=== PATIENT | female | born 1975 ===

== ENCOUNTER 2021-05-24 17:35 | Emergency (ER) | payer OTHER, SELFPAY ==
--- NOTE | ~2021-05-24 | XR_ITS ---
EXAMINATION: X-RAY LUMBAR SPINE X-RAY SACRUM/COCCYX X-RAY PELVIS CLINICAL INFORMATION: Status post fall, pain. COMPARISON: None. TECHNIQUE: 3 views of the lumbar spine 1 view of the pelvis 3 views of the sacrum/coccyx. FINDINGS: Lumbar spine: No evidence of acute fractures or malalignment. There is mild disc space narrowing and facet arthropathy at L4-L5 and L5-S1 with some degree of neural foraminal encroachment which is suboptimally assessed in the absence of oblique views. Pelvis: Partially visualized total left sided hip arthroplasty with an acetabular screw. 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 There is no evidence of acute fractures or malalignment. There are moderate degenerative changes in the right hip with joint space narrowing and subcortical sclerosis. There are moderate degenerative changes as well in the pubic symphysis. Chronic deformity of the right ischial tuberosity. Sacrum/coccyx: Questionable anterior subluxation in the upper sacrum of what appears to be S2 on S3. There is also some degree of diastases in between S4/S5 and L5/coccyx. XR/XR pelvis min 3V IMPRESSION: Lumbar spine: No acute fractures or malalignment. Mild degenerative spondylosis. Pelvis: Chronic deformity of the left sacroiliac joint with traversing screws. Partially visualized total left-sided hip arthroplasty. No definite acute fractures. Sacrum/coccyx: Questionable subluxation in the upper sacrum with widening of some joints in the lower sacrum. Recommend correlation for pain/tenderness and if indicated further evaluation with a CT of the pelvis.
--- NOTE | ~2021-05-24 | XR_ITS ---
EXAMINATION: X-RAY LUMBAR SPINE X-RAY SACRUM/COCCYX X-RAY PELVIS CLINICAL INFORMATION: Status post fall, pain. COMPARISON: None. TECHNIQUE: 3 views of the lumbar spine 1 view of the pelvis 3 views of the sacrum/coccyx. FINDINGS: Lumbar spine: No evidence of acute fractures or malalignment. There is mild disc space narrowing and facet arthropathy at L4-L5 and L5-S1 with some degree of neural foraminal encroachment which is suboptimally assessed in the absence of oblique views. Pelvis: Partially visualized total left sided hip arthroplasty with an acetabular screw. 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 There is no evidence of acute fractures or malalignment. There are moderate degenerative changes in the right hip with joint space narrowing and subcortical sclerosis. There are moderate degenerative changes as well in the pubic symphysis. Chronic deformity of the right ischial tuberosity. Sacrum/coccyx: Questionable anterior subluxation in the upper sacrum of what appears to be S2 on S3. There is also some degree of diastases in between S4/S5 and L5/coccyx. XR/XR sacrum coccyx min 2V IMPRESSION: Lumbar spine: No acute fractures or malalignment. Mild degenerative spondylosis. Pelvis: Chronic deformity of the left sacroiliac joint with traversing screws. Partially visualized total left-sided hip arthroplasty. No definite acute fractures. Sacrum/coccyx: Questionable subluxation in the upper sacrum with widening of some joints in the lower sacrum. Recommend correlation for pain/tenderness and if indicated further evaluation with a CT of the pelvis.
--- NOTE | ~2021-05-24 | XR_ITS ---
EXAMINATION: XR SHOULDER, RIGHT CLINICAL INFORMATION: Fall while ice-skating. COMPARISON: None TECHNIQUE: Four views of the right shoulder. FINDINGS: The bones and soft tissues are normal. No fracture. Glenohumeral and acromioclavicular alignment is anatomic with normal joint space. No abnormal soft tissue calcifications. XR/XR shoulder RT min 2V IMPRESSION: Normal right shoulder.
--- NOTE | ~2021-05-24 | XR_ITS ---
EXAMINATION: X-RAY LUMBAR SPINE X-RAY SACRUM/COCCYX X-RAY PELVIS CLINICAL INFORMATION: Status post fall, pain. COMPARISON: None. TECHNIQUE: 3 views of the lumbar spine 1 view of the pelvis 3 views of the sacrum/coccyx. FINDINGS: Lumbar spine: No evidence of acute fractures or malalignment. There is mild disc space narrowing and facet arthropathy at L4-L5 and L5-S1 with some degree of neural foraminal encroachment which is suboptimally assessed in the absence of oblique views. Pelvis: Partially visualized total left sided hip arthroplasty with an acetabular screw. 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 There is no evidence of acute fractures or malalignment. There are moderate degenerative changes in the right hip with joint space narrowing and subcortical sclerosis. There are moderate degenerative changes as well in the pubic symphysis. Chronic deformity of the right ischial tuberosity. Sacrum/coccyx: Questionable anterior subluxation in the upper sacrum of what appears to be S2 on S3. There is also some degree of diastases in between S4/S5 and L5/coccyx. XR/XR lumbar spine 2-3V IMPRESSION: Lumbar spine: No acute fractures or malalignment. Mild degenerative spondylosis. Pelvis: Chronic deformity of the left sacroiliac joint with traversing screws. Partially visualized total left-sided hip arthroplasty. No definite acute fractures. Sacrum/coccyx: Questionable subluxation in the upper sacrum with widening of some joints in the lower sacrum. Recommend correlation for pain/tenderness and if indicated further evaluation with a CT of the pelvis.
[2021-05-24 18:02] VITALS: BP 110/50; PULSE 73; RESP 18; O2SAT 100; BMI 29.0
--- NOTE | 2021-05-24 19:20 | ED_ITS ---
HPI - Back Pain/Injury General Chief Complaint: Back Pain/Injury Stated Complaint: fall Time Seen by Provider: 05/24/21 19:06 Source: patient Mode of arrival: ambulatory Limitations: no limitations History of Present Illness HPI Narrative: Patient bradford skmartín slipped and fell landed on her buttocks complaining of pain on the left side of her buttocks, also complaining of pain in the right shoulder no head injury no loss of consciousness patient ambulatory otherwise Related Data Previous Rx's Medication Instructions Recorded doxycycline monohydrate 100 mg 100 mg PO BID 10 Days #20 cap 10/11/20 capsule Allergies Allergy/AdvReac Type Severity Reaction Status Date / Time penicillin V Allergy Unknown Rash Verified 05/24/21 19:07 Review of Systems Review of Systems: Yes all other systems are reviewed and are negative FOR[facility]LY [facility] Past Medical History Medical History No pertinent past medical history Surgical History Hip joint replacement status Social History Social History Advance Directives: No Advance Directives Information Provided: No Patient : No Physical Exam Vital Signs: Vital Signs: Last Vital Signs Pulse 73 05/24/21 18:02 Resp 18 05/24/21 18:02 BP 110/50 L 05/24/21 18:02 Pulse Ox 100 05/24/21 18:02 Body Mass Index 29.0 Const: General: no acute distress and well developed Orientation/consciousness: patient oriented x3 HENMT: Head: Yes normocephalic Ears: hearing grossly normal bilaterally Eyes: General: appearance normal, both eyes and all related structures Neck: Neck: Yes normal visual inspection, Yes full ROM and No tender Chest: Chest palpation & inspection: normal inspection of the chest Resp: Effort & Inspection: normal respiratory effort Auscultation: clear to auscultation bilaterally Cardio: Rate: regular rate Rhythm: regular rhythm Heart sounds: S1 normal heart sound present and S2 normal heart sound present : General: Yes no CVA tenderness Back/Spine/Pelvis: Back: no CVA tenderness Cervical Spine: cervical ROM normal Thoracic/Lumbar Spine: No thoraco-lumbar spasm, No thoracic spinal tenderness and No lumbar spinal tenderness Back/spine/pelvis image: 1. No midline tenderness tenderness in the right gluteal area Neuro: General: patient oriented x3, gait normal and no focal motor deficits Discharge Plan Discharge Clinical Impression: Contusion of lower back Qualifiers: Encounter type: initial encounter Qualified Code(s): S30.0XXA - Contusion of lower back and pelvis, initial encounter Patient Disposition: Home, Self-Care Instructions: Acute Low Back Pain (ED) Additional Instructions: Take Tylenol/ibuprofen for pain Apply ice Follow with PCP if pain does not get better Prescriptions: No Action doxycycline monohydrate 100 mg capsule 100 mg PO BID 10 Days Qty: 20 RF: 0 Interventions: ED Discharge Assessment Last Done: 05/24/21 19:50 Discharge Date/Time: 05/24/21 20:21
== END 2021-05-24 20:21 | disposition home or self-care (01) ==
PROVIDERS: Emergency Provider Internal Medicine
DX: S30.0XXA Contusion of lower back and pelvis, initial encounter (principal); W00.0XXA Fall on same level due to ice and snow, initial encounter; Y93.21 Activity, ice skating; Y92.9 Unspecified place or not applicable; Y99.9 Unspecified external cause status
CPT/HCPCS: 72100; 72190; 72220; 73030; 99283

== ENCOUNTER 2021-08-22 07:33 | Outpatient (REF) | payer OTHER, SELFPAY ==
[2021-08-22 11:01] LABS: MANUAL DIFF FLAG NO
[2021-08-22 11:05] LABS: Basophils Percent Auto 0.9 % (0-2); Eosinophils Absolute Auto 0.2 X10*3/uL (0.0-0.4); Eosinophils Percent Auto 4.7 % (0-4); Hematocrit 31.3 % (37.0-47.0); Hemoglobin 9.1 g/dl (12.0-16.0); Lymphocytes Absolute Auto 1.3 X10*3/uL (1.2-4.9); Lymphocytes Percent Auto 38.3 % (20-40); Mean Corpuscular HGB Conc 29.1 g/dl (31.0-35.0); Mean Corpuscular Hemoglobin 23.5 pg (27.0-33.0); Mean Corpuscular Volume 80.7 fL (80.0-98.0); Mean Platelet Volume 9.9 fL (9.4-12.3); Monocytes Absolute Auto 0.4 X10*3/uL (0.1-1.2); Monocytes Percent Auto 12.5 % (2-11); Neutrophils Absolute Auto 1.5 x10*3/uL (2.0-8.3); Neutrophils Percent Auto 43.6 % (45-73); Platelet Count 254 X10*3/uL (160-400); Red Blood Count 3.88 X10*6/uL (4.20-5.50); Red Cell Distribution Width 17.6 % (11.0-16.0); White Blood Count 3.4 X10*3/uL (4.8-10.8)
[2021-08-22 11:24] LABS: Alanine Aminotransferase < 6 U/L (0-31); Alkaline Phosphatase 44 U/L (39-117); Anion Gap 9 (12-20); Aspartate Amino Transferase 14 U/L (5-31); Bilirubin Total 0.4 mg/dL (0.0-1.0); Blood Urea Nitrogen 15 mg/dL (9-16); Calcium 8.9 mg/dL (8.4-10.2); Carbon Dioxide 27 mmol/L (22-29); Chloride 109 mmol/L (96-108); Cholesterol 159 mg/dL; Estimated Glomerular Filt Rate > 60; Glucose Fasting 87 mg/dL (60-99); HDL Cholesterol 47 mg/dL; LDL Cholesterol Calculated 102 mg/dl; Potassium 4.4 mmol/L (3.3-5.1); Sodium 141 mmol/L (135-145); Total Protein 6.4 g/dL (6.5-8.0); Triglycerides 53 mg/dL
[2021-08-22 11:41] LABS: TSH reflex Free T4 1.37 uIU/mL (0.32-4.0)
== END 2021-08-22 07:34 | disposition home or self-care (01) ==
LOC: HO.WFDLDS 07:33
PROVIDERS: Visit Provider Nurse Practitioner Family
DX: I10 Essential (primary) hypertension (principal); E78.00 Pure hypercholesterolemia, unspecified; Z76.89 Persons encountering health services in other specified circumstances
CPT/HCPCS: 36415; 80053; 80061; 84443; 85025

== ENCOUNTER 2021-09-18 14:19 | Outpatient (REF) | payer OTHER, SELFPAY ==
--- NOTE | ~2021-09-18 | MM_ITS ---
EXAMINATION: MM SCREENING DIGITAL BREAST TOMOSYNTHESIS, BILATERAL CLINICAL INFORMATION: Screening. Asymptomatic. Age 46. No prior breast imaging. No known family history breast cancer. The lifetime risk of breast cancer based on the Tyrer-Cuzick Model is 8%. COMPARISON: None (current study represents initial baseline exam). TECHNIQUE: Digital breast tomosynthesis is performed in both the craniocaudal and mediolateral oblique views along with computer-aided detection (CAD). Synthesized 2D images are generated from the tomosynthesis. Additional right MLO view is provided. FINDINGS: There are scattered areas of fibroglandular density (ACR BI-RADS breast composition Category b). There are no significant masses, abnormal calcifications, or other abnormalities. The axilla and skin contours are unremarkable. MM/MM tomosynthesis screening BI IMPRESSION: No mammographic evidence of malignancy. ASSESSMENT: BI-RADS 1: Negative RECOMMENDATION: Routine annual mammography screening. This patient's information was entered into a reminder system with a target due date for their next mammogram.
== END 2021-09-18 14:20 | disposition home or self-care (01) ==
LOC: HO.MAMMO 14:19
PROVIDERS: PCP Nurse Practitioner Family; Visit Provider Nurse Practitioner Family
DX: Z12.31 Encounter for screening mammogram for malignant neoplasm of breast (principal)
CPT/HCPCS: 77063; 77067

== ENCOUNTER 2021-10-15 08:14 | Outpatient (REF) | payer OTHER, SELFPAY ==
[2021-10-15 11:35] LABS: MANUAL DIFF FLAG NO
[2021-10-15 11:48] LABS: Basophils Percent Auto 0.5 % (0-2); Eosinophils Absolute Auto 0.1 X10*3/uL (0.0-0.4); Eosinophils Percent Auto 1.8 % (0-4); Hemoglobin 9.7 g/dl (12.0-16.0); Lymphocytes Absolute Auto 1.5 X10*3/uL (1.2-4.9); Lymphocytes Percent Auto 39.6 % (20-40); Mean Corpuscular HGB Conc 28.5 g/dl (31.0-35.0); Mean Corpuscular Volume 80.6 fL (80.0-98.0); Mean Platelet Volume 10.8 fL (9.4-12.3); Monocytes Absolute Auto 0.5 X10*3/uL (0.1-1.2); Monocytes Percent Auto 12.3 % (2-11); Neutrophils Absolute Auto 1.7 x10*3/uL (2.0-8.3); Neutrophils Percent Auto 45.8 % (45-73); Platelet Count 268 X10*3/uL (160-400); Red Blood Count 4.22 X10*6/uL (4.20-5.50); Red Cell Distribution Width 18.8 % (11.0-16.0); White Blood Count 3.8 X10*3/uL (4.8-10.8)
[2021-10-15 12:19] LABS: Iron 25 mcg/dL (30-160); Percent Iron Saturation 6 % (15-50); Total Iron Binding Capacity 452 mcg/dL (228-428); Unsaturated Iron Binding 427 ug/dL
== END 2021-10-15 08:15 | disposition home or self-care (01) ==
LOC: HO.WFDLDS 08:14
PROVIDERS: Visit Provider Nurse Practitioner Family
DX: I10 Essential (primary) hypertension (principal); D64.9 Anemia, unspecified
CPT/HCPCS: 36415; 83540; 85025

== ENCOUNTER 2021-10-31 12:21 | Day surgery (SDC) | payer OTHER, SELFPAY ==
--- NOTE | 2021-10-30 09:21 | P.CONAN_ITS ---
Documented by User: Shira Basilio NP 10/30/21 09:22 HPI - Anesthesia Eval Consult details Narrative: 46yo F for Colonoscopy PMFSH Active Problems Active Problems: All Active Problems (Updated 10/25/21 @ 12:18 by Kamala Osei, RN) Otitis media, right (Acute) Bilateral otitis media (Acute) Encounter to establish care (Acute ~08/20/21) COVID-19 virus infection (Acute ~07/2021) Difficulty sleeping (Acute) Anemia (Acute) Past Medical History Medical History (Updated 10/25/21 @ 12:18 by Kamala Osei, [email or web address]) Anemia No pertinent past medical history Personal history of COVID-19 Family History Family History (Updated 08/20/21 @ 13:59 by NAN Elizabeth) Mother Mental health disorder Father No problems noted. Family/Other Substance use disorder Surgical History Surgical History (Updated 08/20/21 @ 14:13 by KIMBERLEE Servin) Hip joint replacement status Social History Social History (Updated 08/20/21 @ 14:00 by NAN Elizabeth) Housing: House Alcohol intake: former Patient Tobacco Use Status: Never used Tobacco e-Cigarette/Vaping Use: Never Used Second Hand Smoke Exposure: No Advance Directives: No Advance Directives Information Provided: Yes service: No Current occupational status: employed Current occupational exposures/hazards: No Meds Allergies Allergy/AdvReac Type Severity Reaction Status Date / Time penicillin V Allergy Unknown Rash Verified 10/25/21 12:18 Exam Exam Date and Time: October 30, [id number] Pertinent Lab Results Pertinent Lab Results: Laboratory Tests 08/22/21 10/15/21 07:40 08:20 WBC 3.8 L Hgb 9.7 L Hct 34.0 L Plt Count 268 Sodium 141 Potassium 4.4 Chloride 109 H Carbon Dioxide 27 BUN 15 Creatinine 0.84 Assessment and Plan Assessment Anesthesia Assessment: Chart Reviewed Documented by User: Amos Burleson MD 10/31/21 12:29 [facility] Past Medical History Medical History (Updated 10/25/21 @ 12:18 by Kamala Osei RN) Anemia No pertinent past medical history Personal history of COVID-19 Family History Family History (Updated 08/20/21 @ 13:59 by NAN Elizabeth) Mother Mental health disorder Father No problems noted. Family/Other Substance use disorder Family history of problems with anesthesia: No Surgical History Surgical History (Updated 08/20/21 @ 14:13 by KIMBERLEE Servin) Hip joint replacement status History of Problems with Anesthesia: No Social History Social History (Updated 08/20/21 @ 14:00 by NAN Elizabeth) Housing: House Alcohol intake: former Patient Tobacco Use Status: Never used Tobacco e-Cigarette/Vaping Use: Never Used Second Hand Smoke Exposure: No Advance Directives: No Advance Directives Information Provided: Yes service: No Current occupational status: employed Current occupational exposures/hazards: No Meds Allergies Allergy/AdvReac Type Severity Reaction Status Date / Time penicillin V Allergy Unknown Rash Verified 10/25/21 12:18 Exam Airway Mallampati Class: II TM Dist: >3cm Neck ROM: Full Assessment and Plan Assessment Anesthesia Assessment: Anesthesia Plan Discussed Final Anesthetic Review Family History of Problems with Anesthesia: No History of Problems with Anesthesia: No NPO: Yes ASA Class: II Final Preanesthetic Review: No Changes in Pt Med Stat, Meds/Allgs Chart Reviewed, Consent Obtained/Reviewed and Anes Risks/Benef Reviewed Patient Risk: Low Procedure Risk: Low Anesthetic Plan Anesthetic Plan: MAC: Disposition: Standard PACU
--- NOTE | 2021-10-31 12:03 | MHC.SHP ---
Pre-Procedural Eval Section A Date of Service: 10/31/21 Section B Chief Complaint: screening Relevant Family History (Specify if Yes): No Relevant Social History: None Present Medications: see Short Stay Collaborative assessment Medical History: Significant History (otitis media, menorrhagia ) History of Previous Operations: Relevant previous surgery/procedure and date(s) (hip surgery) Allergies: Allergies Allergy/AdvReac Type Severity Reaction Status Date / Time penicillin V Allergy Unknown Rash Verified 10/25/21 12:18 Review of Systems Sugical H&P ROS: Negative: Constitution, Cardiovascular, Respiratory, Neurological, Psychiatric, Hem-Onc, Allergic/Immunologic, Gastrointestinal, Genitourinary, Musculoskeletal, Integumentary, Endocrine and Eyes/Ears/Nose/Throat Exam Surgical H&P Exam: Normal: HEENT, Normal: Heart, Normal: Lungs, Normal: Extremities, Normal: Abdomen, Normal: Skin and Normal: Neurological Plan Diagnosis/Plan: Unchanged I have reviewed the history and physical and performed a pertinent physical examination on my patient. No changes have occurred unless specified.
--- NOTE | 2021-10-31 12:37 | PM.OP ---
Brief Operative Note Date of Service: 10/31/21 Pre-op diagnosis: screening colonoscopy Post-op diagnosis: same Procedure: see op note Surgeon: Parmjit Melendez MD Anesthesia: MAC Was an Novelty Maker used for this Procedure?: No Estimated blood loss (mL): 0 Condition: stable Disposition: PACU
[2021-10-31 12:42] LABS: UPreg QC Valid YES; Urine Pregnancy NEGATIVE (NEGATIVE)
[2021-10-31 12:44] VITALS: BP 129/86; PULSE 96; RESP 18; TEMP 36.7; O2SAT 97; BMI 29.0
[2021-10-31] MEDS: Lactated Ringers 1,000 ML 100 ML IVCONT (12:50)
--- NOTE | 2021-10-31 13:42 | W.PM.OPN ---
Operative Note Operative Note Date of Service: 10/31/21 Narrative: Operative Information Procedure Description: Colonoscopy Indication: screening colonoscopy Anesthesia: MAC COLONOSCOPY Instrument: Olympus variable stiffness pediatric scope 190L Colonoscopy Monitoring: Vital signs and clinical assessment, continuous EKG monitoring, Pulse oximetry, Carbon Dioxide monitoring and blood pressure monitoring were done throughout the procedure. Colon withdrawal time was 21 minutes. Procedure: The patient was placed in the left lateral decubitis position and pre-procedure medications were administered. After a digital rectal examination of the ano-rectum, the video colonoscope was inserted into the rectum and advanced through the colon to the cecum/TI. The colonoscope was slowly withdrawn in a retrograde panoramic fashion and the colon mucosa was carefully examined including a retroflexed view of the rectum. Findings and interventions are described below. Procedure Difficulty: easy Findings: Terminal Ileum-normal Right sided retroflexion was normal Cecum:normal Ascending Colon: proximal part of colon there was a flat polyp 10 mm which was lifted with ORISE and then removed with cold snare. In mid ascending colon 10-11 mm sessile polyp noted, removed with cold snare, small residual piece removed with forceps but the other part removed by cold snare was not retrieved. Transverse Colon -normal Descending Colon: 12-14 mm flat polyp overlapping a fold was noted, lifted with ORISE and then removed enbloc with cold snare Sigmoid Colon: normal Rectum: Retroflexion with small internal hemorrhoids, grade I, 6-8 mm sessile polyp removed with forceps Anorectum - normal Colon preparation: Dilliner Bowel Preparation Scale Right colon; 2 Transverse colon: 2 Left colon; 2 (0 = Unprepared colon segment with mucosa not seen due to solid stool that cannot be cleared. 1 = Portion of mucosa of the colon segment seen, but other areas of the colon segment not well seen due to staining, residual stool and/or opaque liquid. 2 = Minor amount of residual staining, small fragments of stool and/or opaque liquid, but mucosa of colon segment seen well. 3 = Entire mucosa of colon segment seen well with no residual staining, small fragments of stool or opaque liquid) Impression and Post Procedure Diagnosis: polyps internal hemorrhoids Plan: High fiber diet leaflet Avoid straining at stool, epsom salts and sitz bath, anusol supps or cream Repeat Colonoscopy in 3 years due to polyps, also patient had taken iron tabs and black liquid in certain parts of colon obscured view or earlier if clinically indicated Above findings were reviewed with the patient and relevant handouts were provided if indicated.
[2021-10-31 13:48] VITALS: BP 106/65; PULSE 68; RESP 16; TEMP 36.7; O2SAT 98
[2021-10-31 14:06] VITALS: BP 104/65; PULSE 69; RESP 16; TEMP 36.8; O2SAT 98
== END 2021-10-31 14:39 | disposition home or self-care (01) ==
PROVIDERS: Nurse Practitioner; PCP Nurse Practitioner Family; Visit Provider Internal Medicine Gastroenterology
PROC: 0DJD8ZZ Inspection of Lower Intestinal Tract, Via Natural or Artificial Opening Endoscopic (ICD-10-PCS; CPT 45378; principal; 2021-10-31 13:20)
DX: Z12.11 Encounter for screening for malignant neoplasm of colon (principal); D12.2 Benign neoplasm of ascending colon; D12.4 Benign neoplasm of descending colon; K62.1 Rectal polyp; K57.30 Diverticulosis of large intestine without perforation or abscess without bleeding; K64.0 First degree hemorrhoids; D64.9 Anemia, unspecified; G47.9 Sleep disorder, unspecified; Z79.899 Other long term (current) drug therapy; Z88.0 Allergy status to penicillin; Z86.16 Personal history of COVID-19; Z96.641 Presence of right artificial hip joint
CPT/HCPCS: 45385; 45380; 45381; 81025; 88305

== ENCOUNTER 2021-11-20 08:58 | Outpatient (REF) | payer OTHER, SELFPAY ==
[2021-11-20 15:19] LABS: CT PCR NOT DETECTED (Not Detect.); NG PCR NOT DETECTED (Not Detect.)
[2021-11-21 11:12] LABS: BV Int Neg Control Negative (Negative); BV Int Pos Control Positive (Positive)
[2021-11-23 16:57] LABS: HPV mRNA E6/E7 rflx Not Detected (Not Detected)
== END 2021-11-20 08:59 | disposition home or self-care (01) ==
LOC: HO.LAB 08:58
PROVIDERS: PCP Nurse Practitioner Family; Visit Provider Advanced Practice Midwife
DX: Z01.419 Encounter for gynecological examination (general) (routine) without abnormal findings (principal); N92.0 Excessive and frequent menstruation with regular cycle; Z20.2 Contact with and (suspected) exposure to infections with a predominantly sexual mode of transmission
CPT/HCPCS: 87480; 87491; 87510; 87591; 87624; 87660; 88142

== ENCOUNTER 2021-12-12 14:32 | Outpatient (REF) | payer OTHER, SELFPAY ==
--- NOTE | ~2021-12-12 | US_ITS ---
EXAMINATION: US PELVIS CLINICAL INFORMATION: Excessive and frequent menstruation. COMPARISON: None. TECHNIQUE: Ultrasound of the pelvis is performed using both transabdominal and transvaginal transducers along with Doppler. Transvaginal imaging is performed due to inadequate visualization transabdominally. FINDINGS: The uterus is anteverted and measures 10.9 x 4 x 5.4 cm in dimension. There is a small cyst in the anterior lower uterine segment just anterior to the endometrium measuring 2 x 3 mm. No other focal uterine lesion is seen. Endometrial thickness is upper normal measuring 1.5 cm. There are nabothian cysts in the cervix. The ovaries are normal. The right ovary measures 2.9 x 1.6 x 1 cm. The left ovary measures 2.5 x 2 x 1.6 cm. There is no fluid in the pelvis. US/US pelvic and transvaginal IMPRESSION: Upper normal thickness endometrium measuring 1.5 cm.
== END 2021-12-12 14:33 | disposition home or self-care (01) ==
LOC: HO.US 14:32
PROVIDERS: Visit Provider Advanced Practice Midwife
DX: N92.0 Excessive and frequent menstruation with regular cycle (principal)
CPT/HCPCS: 76830; 76856

== ENCOUNTER 2022-01-06 13:36 | Outpatient (REF) | payer OTHER, SELFPAY | END 2022-01-06 13:37 | disposition home or self-care (01) | LOC: HO.LAB 13:36 | PROVIDERS: PCP Nurse Practitioner Family; Visit Provider Advanced Practice Midwife | DX: N93.9 Abnormal uterine and vaginal bleeding, unspecified (principal); Z32.02 Encounter for pregnancy test, result negative | CPT/HCPCS: 58100; 81025; 88305 ==

== ENCOUNTER → 2022-02-13 14:56 | Outpatient (BNVA) | payer OTHER, SELFPAY | PROVIDERS: PCP Nurse Practitioner Family; Visit Provider Advanced Practice Midwife | DX: Z30.430 Encounter for insertion of intrauterine contraceptive device (principal); Z32.02 Encounter for pregnancy test, result negative | CPT/HCPCS: 58300; 81025 ==

== ENCOUNTER → 2022-03-17 15:26 | Outpatient (BNVA) | payer OTHER, SELFPAY | PROVIDERS: PCP Nurse Practitioner Family; Visit Provider Obstetrics & Gynecology | DX: Z32.02 Encounter for pregnancy test, result negative (principal); Z30.431 Encounter for routine checking of intrauterine contraceptive device | CPT/HCPCS: 81025 ==

== ENCOUNTER 2022-09-18 07:27 | Outpatient (REF) | payer OTHER, SELFPAY ==
[2022-09-18 11:16] LABS: MANUAL DIFF FLAG NO
[2022-09-18 11:36] LABS: Basophils Percent Auto 0.7 % (0-2); Eosinophils Absolute Auto 0.1 X10*3/uL (0.0-0.4); Hematocrit 46.4 % (37.0-47.0); Hemoglobin 14.9 g/dl (12.0-16.0); Imm Gran Abs Auto 0.02 X10*3/uL (0.00-0.03); Imm Gran Pct Auto 0.3 % (0.0-0.4); Lymphocytes Absolute Auto 1.6 X10*3/uL (1.2-4.9); Lymphocytes Percent Auto 26.6 % (20-40); Mean Corpuscular HGB Conc 32.1 g/dl (31.0-35.0); Mean Corpuscular Hemoglobin 30.8 pg (27.0-33.0); Mean Corpuscular Volume 96.1 fL (80.0-98.0); Mean Platelet Volume 10.3 fL (9.4-12.3); Monocytes Absolute Auto 0.7 X10*3/uL (0.1-1.2); Monocytes Percent Auto 10.6 % (2-11); Neutrophils Absolute Auto 3.7 x10*3/uL (2.0-8.3); Neutrophils Percent Auto 59.8 % (45-73); Platelet Count 208 X10*3/uL (160-400); Red Blood Count 4.83 X10*6/uL (4.20-5.50); Red Cell Distribution Width 13.2 % (11.0-16.0); White Blood Count 6.1 X10*3/uL (4.8-10.8)
[2022-09-18 11:38] LABS: Appearance Urine Clear; Color Urine Yellow; Glucose Urine UA Negative (Negative); Leukocyte Esterase Urine Large (3+) (Negative); Nitrite Urine Positive (Negative); UMIC TRIGGER UACC YES; Urine Blood Trace (Negative); Urine Ketones Negative (Negative); Urine Protein Negative (Neg-Trace)
[2022-09-18 11:43] LABS: Bacteria Urine 4+ (None Seen); Hyaline Casts Urine 0-2 /LPF (0-2); RBC Urine 0-2 /HPF (0-2); Squamous Epithelial Cell Urine 0-2 /HPF (0-2); UACC Culture Trigger YES; WBC Urine >50 /HPF (0-5)
[2022-09-18 12:27] LABS: Alanine Aminotransferase < 6 U/L (0-31); Albumin Level 4.3 g/dL (3.5-5.0); Alkaline Phosphatase 49 U/L (39-117); Anion Gap 12 (12-20); Aspartate Amino Transferase 14 U/L (5-31); Bilirubin Total 0.6 mg/dL (0.0-1.0); Blood Urea Nitrogen 18 mg/dL (9-16); Calcium 8.9 mg/dL (8.4-10.2); Carbon Dioxide 27 mmol/L (22-29); Chloride 107 mmol/L (96-108); Cholesterol 179 mg/dL; Estimated Glomerular Filt Rate > 60; Glucose Fasting 79 mg/dL (60-99); HDL Cholesterol 49 mg/dL; LDL Cholesterol Calculated 119 mg/dl; Potassium 4.6 mmol/L (3.3-5.1); Sodium 141 mmol/L (135-145); Total Protein 6.6 g/dL (6.5-8.0); Triglycerides 58 mg/dL
[2022-09-18 12:38] LABS: Folate 12.4 ng/mL (> or = 4.0); TSH reflex Free T4 1.95 uIU/mL (0.32-4.0); Vitamin B12 405 pg/mL (200-900); Vitamin D 25-OH Total 24.6 ng/mL (>30)
== END 2022-09-18 07:28 | disposition home or self-care (01) ==
LOC: HO.WFDLDS 07:27
PROVIDERS: Visit Provider Nurse Practitioner Family
DX: Z00.00 Encounter for general adult medical examination without abnormal findings (principal); N39.0 Urinary tract infection, site not specified; E55.9 Vitamin D deficiency, unspecified; G47.00 Insomnia, unspecified; D64.9 Anemia, unspecified
CPT/HCPCS: 36415; 80053; 80061; 81001; 82306; 82607; 82746; 84443; 85025; 87086; 87088; 87186

== ENCOUNTER 2022-09-22 14:26 | Outpatient (REF) | payer OTHER, SELFPAY ==
--- NOTE | ~2022-09-22 | MM_ITS ---
EXAMINATION: MM SCREENING DIGITAL BREAST TOMOSYNTHESIS, BILATERAL CLINICAL INFORMATION: Screening. Asymptomatic. The lifetime risk of breast cancer based on the Tyrer-Cuzick Model is 8%. COMPARISON: Mammography: 09/18/2021 (baseline) TECHNIQUE: Digital breast tomosynthesis is performed in both the craniocaudal and mediolateral oblique views along with computer-aided detection (CAD). Synthesized 2D images are generated from the tomosynthesis. FINDINGS: There are scattered areas of fibroglandular density (ACR BI-RADS breast composition Category b). There are no significant masses, abnormal calcifications, or other abnormalities. Parenchymal pattern is similar to prior baseline exam. There is no architectural abnormality. The axilla are unremarkable. No significant changes. MM/MM tomosynthesis screening BI IMPRESSION: No mammographic evidence of malignancy. ASSESSMENT: BI-RADS 1: Negative RECOMMENDATION: Routine annual mammography screening. This patient's information was entered into a reminder system with a target due date for their next mammogram.
== END 2022-09-22 14:27 | disposition home or self-care (01) ==
LOC: HO.MAMMO 14:26
PROVIDERS: PCP Nurse Practitioner Family; Visit Provider Nurse Practitioner Family
DX: Z12.31 Encounter for screening mammogram for malignant neoplasm of breast (principal)
CPT/HCPCS: 77063; 77067

== ENCOUNTER → 2022-11-24 09:32 | Outpatient (BNVA) | payer OTHER, SELFPAY | PROVIDERS: PCP Nurse Practitioner Family; Visit Provider Advanced Practice Midwife ==

== ENCOUNTER 2023-08-26 13:51 | Outpatient (AMB) | payer OTHER, SELFPAY ==
--- NOTE | 2023-08-26 13:53 | A.OFFPC_ITS ---
Vital Signs 08/26/23 13:54 Height 5 ft 6 in Weight 185 lb 4 oz BMI 29.9 BP 110/72 Blood Pressure Location Lt brachial Position Sitting Pulse 91 Pulse Source Pulse Oximeter Pulse Oximetry (%) 96 Oxygen Delivery Method Room Air Intake Visit Reasons: physical Intake Note: Patient is here today for a physical. 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 Enforcement Inspector: Not Required per policy Accompanied by: Self / Same As Patient Allergies penicillin V Allergy (Unknown, Verified 08/28/23 11:00) Rash Medication List - Last Reconciled 08/28/23 by Jero Smith MD cholecalciferol (vitamin D3) 25 mcg PO DAILY trazodone 50 mg PO BEDTIME Tobacco use date assessed: 08/26/23 Dental Screening Dental Screen Date: 08/26/23 Did you have a dental visit in the last 12 months?: No Did you have a dental problem in the last 6 months where you did not have access to dental care?: No Was dental information given to patient?: Patient has dentist HPI physical HPI Details 48-year-old female presents to [facility] requesting an annual physical. I will be assuming her care. [facility] Medical History (Updated 08/28/23 @ 11:02 by Jero Smith MD) Anemia COVID-19 virus infection (~07/2021) Surgical History Hx of unilateral salpingectomy History of colonoscopy History of ear surgery Hip joint replacement status Family History Mother Mental health disorder Father No problems noted. Family/Other Substance use disorder Social History Housing: House Alcohol intake: former Patient Tobacco Use Status: Never used Tobacco e-Cigarette/Vaping Use: Never Used Second Hand Smoke Exposure: No service: No Current occupational status: employed Current occupational exposures/hazards: No Sexual orientation: Straight/Heterosexual Gender identity: Female Cognitive needs: No Hearing needs: No Vision needs: Yes (Glasses) Questionnaire PHQ-9 Over the last 2 weeks, how often have you been bothered by any of the following problems? 1. Little interest or pleasure in doing things: not at all 2. Feeling down, depressed, or hopeless: not at all 3. Trouble falling or staying asleep, or sleeping too much: not at all 4. Feeling tired or having little energy: not at all 5. Poor appetite or overeating: not at all 6. Feeling bad about yourself - or that you are a failure or have let yourself or your family down: not at all 7. Trouble concentrating on things, such as reading the newspaper or watching television: not at all 8. Moving or speaking so slowly that other people could have noticed. Or the opposite - being so fidgety or restless that you have been moving around a lot more than usual: not at all 9. Thoughts that you would be better off or of hurting yourself in some way: not at all Total score: 0 Depression Screening Interpretation: Negative Depression Screening Done: Yes Source: Developed by Drs. Santos Dee, Jennifer Sanchez, Ruy Santamaria and colleagues, with an educational thuy from [employer]. Thrive Questionnaire Date Thrive assessed: 08/26/23 I am a: Patient What is your living situation today?: I have a steady place to live Within the past 12 months, did the food you bought not last and you didn't have the money to get more?: Never true Within the past 12 months, did you worry whether your food would run out before you got money to buy more?: Never true Do you have trouble paying for medicines?: No Do you have trouble getting transportation to medical appointments?: No Do you have trouble paying your heating and electricity bill?: No Do you have trouble taking care of your child, family member or friend?: No Do you have trouble with day-to-day activities such as bathing, preparing meals, shopping, managing finances, etc.?: No Are you currently unemployed and looking for a job?: No Are you interested in more education?: No Currently or been in a relationship where the following occur: no concerns reported THRIVE Score: 0 AUDIT C Alcohol Use Questionnaire (AUDIT-C) 1. How often do you have a drink containing alcohol?: Never Total Score: 0 KOFFI-7 AMB Questionnaire KOFFI-7 Date KOFFI - 7 assessed: 08/26/23 Feeling nervous, anxious, or on edge: 0 = Not at all Not being able to stop or control worryin = Not at all Worrying too much about different things: 0 = Not at all Trouble relaxin = Not at all Being so restless that it is hard to sit still: 0 = Not at all Becoming easily annoyed or irritable: 0 = Not at all Feeling afraid as if something awful might happen: 0 = Not at all Total KOFFI-7 score (0-4 normal; 5-9 mild; 10-14 moderate; 15-21 severe): 0 Source: Developed by Drs. Santos Dee, Jennifer Sanchez, Ruy Santamaria and colleagues, with an educational thuy from [employer]. Physical exam (Primary Care) Vital Signs: Last Vital Signs Pulse 91 08/26/23 13:54 BP 110/72 08/26/23 13:54 Pulse Ox 96 08/26/23 13:54 Oxygen Delivery Method Room Air 08/26/23 13:54 BMI result Body Mass Index 29.9 Tobacco/Smoking Status: Tobacco use Status Tobacco use date assessed 08/26/23 08/26/23 13:59 Patient Tobacco Use Status Never used Tobacco 08/26/23 13:59 e-Cigarette/Vaping Use Never Used 08/26/23 13:59 PHQ-9: PHQ-9 Score PHQ-9: Total score 0 08/26/23 14:49 Depression Screening Interpretation: Negative Thrive Assessment: Date of Thrive Assessment Date Thrive assessed 08/26/23 08/26/23 13:59 Currently or been in a relationship where the following occur: no concerns reported Const General: cooperative and healthy appearing Nutritional Appearance: well nourished Orientation/consciousness: patient oriented x3 Limitations: no limitations HENMT Head: Yes normal to inspection Eyes General: appearance normal, both eyes and all related structures Neck Neck: Yes normal visual inspection Chest Chest palpation & inspection: normal palpation of entire chest wall Resp Effort & Inspection: normal respiratory effort Neuro General: patient oriented x3 Assessment and Plan Assessment & Plan (1) Insomnia: Code(s): G47.00 - Insomnia, unspecified Plan: Trazodone has been added to the regimen. Patient was advised to call back the office on how effective the medication is. (2) Annual physical exam: Code(s): Z00.00 - Encounter for general adult medical examination without abnormal findings Plan Blood work has been ordered. Orders: Orders Basic Metabolic Panel 08/26/23 G47.00 - Insomnia, unspecified Complete Blood Count no Diff 08/26/23 G47.00 - Insomnia, unspecified Lipid Panel 08/26/23 G47.00 - Insomnia, unspecified Liver Panel 08/26/23 G47.00 - Insomnia, unspecified Thyroid Stimulating Hormone 08/26/23 G47.00 - Insomnia, unspecified UA and rflx microscopic 08/26/23 G47.00 - Insomnia, unspecified Medications: New trazodone 50 mg PO BEDTIME 30 tabs 0RF Coding Level of Care Code Est Pt Prev Care 40-64y(17260) Diagnoses Insomnia G47.00 Annual physical exam Z00.00
[2023-08-26 13:54] VITALS: BP 110/72; PULSE 91; O2SAT 96; BMI 29.9
== END 2023-08-26 14:41 | disposition home or self-care (01) ==
PROVIDERS: PCP Internal Medicine; Visit Provider Internal Medicine
DX: G47.00 Insomnia, unspecified (principal); Z00.00 Encounter for general adult medical examination without abnormal findings
CPT/HCPCS: 99396

== ENCOUNTER 2023-09-21 08:35 | Outpatient (REF) | payer OTHER, SELFPAY ==
[2023-09-21 11:33] LABS: Appearance Urine Clear; Color Urine Yellow; Glucose Urine UA Negative (Negative); Leukocyte Esterase Urine Trace (Negative); Nitrite Urine Negative (Negative); Specific Gravity - Urine 1.015 (1.005-1.025); UMIC TRIGGER UA YES; Urine Blood Negative (Negative); Urine Ketones Negative (Negative); Urine Protein Negative (Neg-Trace)
[2023-09-21 11:40] LABS: Bacteria Urine None Seen (None Seen); Hyaline Casts Urine 0-2 /LPF (0-2); RBC Urine 0-2 /HPF (0-2); WBC Urine 0-5 /HPF (0-5)
[2023-09-21 11:49] LABS: Hematocrit 43.5 % (37.0-47.0); Hemoglobin 14.3 g/dl (12.0-16.0); Mean Corpuscular HGB Conc 32.9 g/dl (31.0-35.0); Mean Corpuscular Hemoglobin 31.2 pg (27.0-33.0); Mean Corpuscular Volume 94.8 fL (80.0-98.0); Platelet Count 209 X10*3/uL (160-400); Red Blood Count 4.59 X10*6/uL (4.20-5.50); Red Cell Distribution Width 13.2 % (11.0-16.0); White Blood Count 4.6 X10*3/uL (4.8-10.8)
[2023-09-21 12:09] LABS: Alanine Aminotransferase 5 U/L (0-31); Albumin Level 4.2 g/dL (3.5-5.0); Alkaline Phosphatase 47 U/L (39-117); Anion Gap 9 (12-20); Aspartate Amino Transferase 17 U/L (5-31); Bilirubin Direct 0.2 mg/dL (0.0-0.5); Bilirubin Total 0.4 mg/dL (0.0-1.0); Blood Urea Nitrogen 9 mg/dL (9-16); Calcium 9.5 mg/dL (8.4-10.2); Carbon Dioxide 29 mmol/L (22-29); Chloride 106 mmol/L (96-108); Cholesterol 167 mg/dL (<200); Estimated Glomerular Filt Rate > 60; Glucose Random 87 mg/dL (60-115); HDL Cholesterol 49 mg/dL (>40); LDL Cholesterol Calculated 106 mg/dL (<100); Potassium 3.9 mmol/L (3.3-5.1); Sodium 140 mmol/L (135-145); Total Protein 6.8 g/dL (6.5-8.0); Triglycerides 61 mg/dL (<150)
[2023-09-21 12:25] LABS: Thyroid Stimulating Hormone 1.34 uIU/mL (0.32-4.0)
== END 2023-09-21 08:36 | disposition home or self-care (01) ==
LOC: HO.WFDLDS 08:35
PROVIDERS: Visit Provider Internal Medicine
DX: Z13.6 Encounter for screening for cardiovascular disorders (principal); G47.00 Insomnia, unspecified
CPT/HCPCS: 36415; 80048; 80061; 80076; 81001; 84443; 85027

== ENCOUNTER → 2023-09-24 14:30 | Outpatient (BNV) | payer OTHER, SELFPAY | PROVIDERS: PCP Internal Medicine; Visit Provider Radiology Diagnostic Radiology | DX: Z12.31 Encounter for screening mammogram for malignant neoplasm of breast (principal) | CPT/HCPCS: 77063; 77067 ==

== ENCOUNTER 2023-09-24 14:37 | Outpatient (REF) | payer OTHER, SELFPAY | END 2023-09-24 14:38 | disposition home or self-care (01) | LOC: HO.MAMMO 14:37 | PROVIDERS: PCP Internal Medicine; Visit Provider Nurse Practitioner Family | DX: Z12.31 Encounter for screening mammogram for malignant neoplasm of breast (principal) | CPT/HCPCS: 77063; 77067 ==

== ENCOUNTER 2024-02-25 10:23 | Outpatient (AMB) | payer OTHER, SELFPAY ==
[2024-02-25 10:25] VITALS: BP 120/82; PULSE 77; O2SAT 99; BMI 28.4
--- NOTE | 2024-02-25 10:25 | MHC.PC.OV ---
Vital Signs 02/25/24 10:25 Height 5 ft 6 in Weight 176 lb 0.6 oz BMI 28.4 BP 120/82 Blood Pressure Location Lt brachial Position Sitting Pulse 77 Pulse Source Pulse Oximeter Pulse Oximetry (%) 99 Oxygen Delivery Method Room Air Intake Visit Reasons: 6mth f/u Coating Manager Required: No Allergies penicillin V Allergy (Unknown, Verified 02/29/24 05:32) Rash Medication List - Last Reconciled 02/29/24 by Jero Smith MD cholecalciferol (vitamin D3) 25 mcg PO DAILY semaglutide (Ozempic) 0.5 mg (0.736 mL) subcut QWEEK Tobacco use date assessed: 08/26/23 Dental Screening Dental Screen Date: 08/26/23 Did you have a dental visit in the last 12 months?: Yes Did you have a dental problem in the last 6 months where you did not have access to dental care?: No Was dental information given to patient?: Patient has dentist HPI 6mth f/u HPI Details 48-year-old female presents to the office to discuss her chronic medical conditions. In the last office visit trazodone was initiated for her symptoms of insomnia. Patient stopped taking the medication as it was only partially effective. 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 Continues to have insomnia symptoms. However she has partial response to melatonin and is content taking that medication. Patient is also concerned about her excessive weight. She would like to try 1 of the newer medications for the same. Has been trying to exercise and follow a strict diet for some time. Not satisfied with the results. Able to function and do all activities of daily living. [facility] Medical History Anemia COVID-19 virus infection (~07/2021) Surgical History Hx of unilateral salpingectomy History of colonoscopy History of ear surgery Hip joint replacement status Family History Mother Mental health disorder Father No problems noted. Family/Other Substance use disorder Social History Housing: House Alcohol intake: former Patient Tobacco Use Status: Never used Tobacco e-Cigarette/Vaping Use: Never Used Second Hand Smoke Exposure: No service: No Current occupational status: employed Current occupational exposures/hazards: No Sexual orientation: Straight/Heterosexual Gender identity: Female Cognitive needs: No Hearing needs: No Vision needs: Yes (Glasses) Questionnaire Thrive Questionnaire Date Thrive assessed: 08/26/23 I am a: Patient What is your living situation today?: I have a steady place to live Within the past 12 months, did the food you bought not last and you didn't have the money to get more?: Never true Within the past 12 months, did you worry whether your food would run out before you got money to buy more?: Never true Do you have trouble paying for medicines?: No Do you have trouble getting transportation to medical appointments?: No Do you have trouble paying your heating and electricity bill?: No Do you have trouble taking care of your child, family member or friend?: No Do you have trouble with day-to-day activities such as bathing, preparing meals, shopping, managing finances, etc.?: No Are you currently unemployed and looking for a job?: No Are you interested in more education?: No THRIVE Score: 0 AUDIT C Alcohol Use Questionnaire (AUDIT-C) 1. How often do you have a drink containing alcohol?: Never 3. How often do you have six or more drinks on one occasion?: Never Total Score: 0 KOFFI-7 AMB Questionnaire KOFFI-7 Date KOFFI - 7 assessed: 08/26/23 Feeling nervous, anxious, or on edge: 0 = Not at all Not being able to stop or control worryin = Not at all Worrying too much about different things: 0 = Not at all Trouble relaxin = Not at all Being so restless that it is hard to sit still: 0 = Not at all Becoming easily annoyed or irritable: 0 = Not at all Feeling afraid as if something awful might happen: 0 = Not at all Total KOFFI-7 score (0-4 normal; 5-9 mild; 10-14 moderate; 15-21 severe): 0 Source: Developed by Drs. Santos Dee, Jennifer B.Ruy Pacheco and colleagues, with an educational thuy from [employer]. Physical exam (Primary Care) Vital Signs: Last Vital Signs Pulse 77 02/25/24 10:25 BP 120/82 02/25/24 10:25 Pulse Ox 99 02/25/24 10:25 Oxygen Delivery Method Room Air 02/25/24 10:25 Care Plan Goal for BP management: Blood pressure in range. BMI result Body Mass Index 28.4 Tobacco/Smoking Status: Tobacco use Status Tobacco use date assessed 08/26/23 02/25/24 10:26 Patient Tobacco Use Status Never used Tobacco 02/25/24 10:26 e-Cigarette/Vaping Use Never Used 02/25/24 10:26 Thrive Assessment: Date of Thrive Assessment Date Thrive assessed 08/26/23 02/25/24 10:26 Const General: cooperative and healthy appearing Nutritional Appearance: well nourished Orientation/consciousness: patient oriented x3 Limitations: no limitations HENMT Head: Yes normal to inspection Eyes General: appearance normal, both eyes and all related structures Neck Neck: Yes normal visual inspection Chest Chest palpation & inspection: normal palpation of entire chest wall Resp Effort & Inspection: normal respiratory effort Neuro General: patient oriented x3 Assessment and Plan Assessment & Plan (1) Insomnia: Code(s): G47.00 - Insomnia, unspecified Plan: Currently, patient is not on any prescription medications. Sleep hygiene discussed with patient. (2) Anemia: Code(s): D64.9 - Anemia, unspecified Plan: Blood work done in October shows the condition has resolved. (3) Obesity (BMI 30.0-34.9): Code(s): E66.9 - Obesity, unspecified Plan: Patient wanted a trial of semaglutide. Instructions on how to use the medication provided. Medications: New semaglutide (Ozempic) 0.5 mg (0.736 mL) subcut QWEEK 3 mL 0RF Coding Level of Care Code Est Pt Level 4 (66160) Complex EM visit Add On G2211 Diagnoses Insomnia G47.00 Anemia D64.9 Obesity (BMI 30.0-34.9) E66.9
== END 2024-02-25 11:03 | disposition home or self-care (01) ==
PROVIDERS: PCP Internal Medicine; Visit Provider Internal Medicine
DX: G47.00 Insomnia, unspecified (principal); D64.9 Anemia, unspecified; E66.9 Obesity, unspecified; Z68.28 Body mass index [BMI] 28.0-28.9, adult
CPT/HCPCS: 99214

== ENCOUNTER 2024-09-29 14:26 | Outpatient (REF) | payer OTHER, SELFPAY | END 2024-09-29 14:27 | disposition home or self-care (01) | LOC: HO.MAMMO 14:26 | PROVIDERS: PCP Internal Medicine; Visit Provider Internal Medicine | DX: Z12.31 Encounter for screening mammogram for malignant neoplasm of breast (principal) | CPT/HCPCS: 77063; 77067 ==

== ENCOUNTER → 2024-09-29 14:30 | Outpatient (BNV) | payer OTHER, SELFPAY | PROVIDERS: PCP Internal Medicine; Visit Provider Internal Medicine | DX: Z12.31 Encounter for screening mammogram for malignant neoplasm of breast (principal) | CPT/HCPCS: 77063; 77067 ==

== ENCOUNTER 2025-03-29 07:44 | Outpatient (AMB) | payer OTHER, SELFPAY ==
--- NOTE | 2025-03-29 07:46 | MHC.OFFVIS ---
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 Driver'S Education Instructor concerns: . Currently not sexually active. Denies any vaginal dryness or irritation. STI testing offered; she declined. Attempting to eat a healthy diet with calcium and vitamin D and stays active with exercise. Last pap smear; 2021, negative. Last mammogram; 2024. Colonoscopy is UTD, due 2024. Denies any family history of ovarian or colon cancer. FH breast cancer. [facility] Medical History (Updated 03/29/25 @ 08:08 by Radhika Casas CNM) IUD (intrauterine device) in place Anemia COVID-19 virus infection (~07/2021) Surgical History Hx of unilateral salpingectomy History of colonoscopy History of ear surgery Hip joint replacement status Family History Mother Mental health disorder Father No problems noted. Family/Other Substance use disorder Maternal Aunt History of breast cancer Maternal Aunt History of breast cancer Social History Housing: House Alcohol intake: former Patient Tobacco Use Status: Never used Tobacco e-Cigarette/Vaping Use: Never Used Second Hand Smoke Exposure: No service: No Current occupational status: employed Current occupational exposures/hazards: No Sexual orientation: Straight/Heterosexual Gender identity: Female Cognitive needs: No Hearing needs: No Vision needs: Yes (Glasses) Female Reproductive History Menstrual control method: progestin IUCD (Mirena 02/13/22) Total pregnancies: 2 Full term: 1 Number of Living Children: 1 Ectopics: 1 Date of last pap smear: 11/20/21 (neg pap and hpv) Date of Mammogram: 09/29/24 (Birad 1) Review of Systems Const All systems reviewed & are unremarkable except as noted in HPI and below Reports as per HPI Eyes Reports no additional complaints ENT Reports no additional complaints Card Reports no additional complaints Resp Reports no additional complaints GI Reports as per HPI and Reports no additional complaints Reports as per HPI Musc Reports no additional complaints Skin/Breast Reports as per HPI Neuro Reports no additional complaints Psych Reports no additional complaints Endo Reports no additional complaints Yoel/Lymph Reports no additional complaints Aller/Immun Reports no additional complaints Physical Exam Vital Signs: Last Vital Signs BP 100/66 03/29/25 07:48 BMI result Body Mass Index 28.2 Const General: cooperative, healthy appearing, no acute distress, well developed and alert Orientation/consciousness: patient oriented x3 HEENT Head: Yes normal to inspection Eyes General: appearance normal, both eyes and all related structures Neck Neck: Yes normal visual inspection Thyroid: Thyroid normal Chest Chest palpation & inspection: normal inspection of the chest and other (no puckering, dimpling, peau de orange, retraction, discharge, masses) Breast/axilla inspection: normal inspection of the breasts Breast/axilla palpation: normal palpation of the breasts Resp Effort & Inspection: normal respiratory effort GI Inspection: Yes normal to inspection Palpation (GI): Soft to palpation Rectal Exam - Female: deferred General: Yes bladder normal to palpation External Female Exam: normal external appearance and normal appearance of the urethra Speculum Exam - Vagina: normal appearance of the vagina, normal palpation and normal vaginal discharge Speculum Exam - Cervix: normal appearance of the cervix, normal palpation and Other cervical findings present (IUD strings at the os) Bimanual exam- vagina & uterus: normal bimanual exam, normal palpation, uterine size normal, bladder normal to palpation, normal palpation and non-tender Bimanual Exam- Adnexa, other: no masses Skin General skin exam: no rashes or lesions noted Rashes: no rashes Neuro General: patient oriented x3 Cognition (Neuro): normal cognition Extrem General: Yes normal to inspection Psych Attitude: cooperative Thought process: Normal thought process present Assessment & Plan Assessment & Plan (1) Encounter for well woman exam with routine gynecological exam: Code(s): Z01.419 - Encounter for gynecological examination (general) (routine) without abnormal findings Category: Medical Plan Discussed: Current recommendations for pap smears per ASCCP guidelines. Breast awareness, periodic self breast exams and yearly mammogram. Maintain a healthy lifestyle, well balanced diet including Calcium 1,200 mg and Vitamin D 600 IU daily, and routine exercise. Contact the office with any postmenopausal bleeding. Patient verbalizes understanding and agrees to the plan of care. She was given opportunity to ask questions and all questions were answered to the best of my ability. RTO in 1 year for annual information technology technician exam. This note is constructed using voice recognition software. While every effort has been made to ensure accuracy, stock ranch supervisor errors may have been included. Coding Level of Care Code Est Pt Prev Care 40-64y(45425) Diagnoses Encounter for well woman exam with routine gynecological exam Z01.419
[2025-03-29 07:48] VITALS: BP 100/66; BMI 28.2
== END 2025-03-29 08:31 | disposition home or self-care (01) ==
LOC: HO.HWS 07:44
PROVIDERS: PCP Internal Medicine; Visit Provider Advanced Practice Midwife
DX: Z01.419 Encounter for gynecological examination (general) (routine) without abnormal findings (principal)
CPT/HCPCS: 99396; 99459